=== PATIENT | male | born 1990 | race Caucasian/White ===

== ENCOUNTER 2024-01-17 19:32 | Emergency (ER) | payer BC ==
[2024-01-17] MEDS: Fluorescein 1 MG Ophth Strip ONE (21:01)
[2024-01-17] MEDS: Fluorescein 1 MG Ophth Strip EYELF ONE (21:03)
[2024-01-17] MEDS: Proparacaine 0.5% Ophth Soln 15 ML Bottle EYEBOTH ONE (21:03)
[2024-01-17] MEDS: Ofloxacin 0.3% Ophth Soln 5 ML Bottle EYELF ONE (21:21)
[2024-01-17] MEDS: Ofloxacin 0.3% Ophth Soln 5 ML Bottle ONE (21:21)
== END 2024-01-17 21:24 | disposition home or self-care (01) ==
LOC: JD.ED 19:32
DX: S05.52XA Penetrating wound with foreign body of left eyeball, initial encounter (principal); K21.9 Gastro-esophageal reflux disease without esophagitis; E66.9 Obesity, unspecified; Z79.899 Other long term (current) drug therapy; W31.1XXA Contact with metalworking machines, initial encounter; Z68.33 Body mass index [BMI] 33.0-33.9, adult
CPT/HCPCS: 65222; 99282; 99283-25; A9270-GY; J3490